=== PATIENT | female | born 1975 | race Caucasian/White ===

== ENCOUNTER 2019-09-24 17:25 | Emergency (ER) | payer OTHER ==
[2019-09-24 17:42] VITALS: BP 108/48; PULSE 80; TEMP 97.9; BMI 22.6
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
--- NOTE | 2019-09-25 09:27 | EKG ---
Test Reason : Blood Pressure : / mmHG Vent. Rate : 072 BPM Atrial Rate : 072 BPM P-R Int : 130 ms QRS Dur : 082 ms QT Int : 400 ms P-R-T Axes : 059 -05 029 degrees QTc Int : 438 ms NORMAL SINUS RHYTHM WITH SINUS ARRHYTHMIA POSSIBLE LEFT ATRIAL ENLARGEMENT SEPTAL INFARCT , AGE UNDETERMINED ABNORMAL ECG NO PREVIOUS ECGS AVAILABLE Confirmed by Guido Cunningham MD ([id number]) on 09/25/2019 9:26:35 AM Referred By: Confirmed By:Guido Cunningham MD
--- NOTE | 2019-09-27 14:27 | EKG ---
Test Reason : Blood Pressure : / mmHG Vent. Rate : 069 BPM Atrial Rate : 069 BPM P-R Int : 130 ms QRS Dur : 082 ms QT Int : 408 ms P-R-T Axes : 043 -13 018 degrees QTc Int : 437 ms NORMAL SINUS RHYTHM POSSIBLE LEFT ATRIAL ENLARGEMENT LEFT VENTRICULAR HYPERTROPHY CANNOT RULE OUT SEPTAL INFARCT (CITED ON OR BEFORE 24-SEP-2019) ABNORMAL ECG WHEN COMPARED WITH ECG OF 24-SEP-2019 17:48, NO SIGNIFICANT CHANGE WAS FOUND Confirmed by VIRAJ MENDOZA MD ([id number]) on 09/27/2019 2:27:11 PM Referred By: Confirmed By:VIRAJ MENDOZA MD
== END 2019-09-24 20:24 | disposition home or self-care (01) ==
LOC: JERFT 17:25
DX: S20.219A Contusion of unspecified front wall of thorax, initial encounter (principal); V49.59XA Passenger injured in collision with other motor vehicles in traffic accident, initial encounter; Y92.414 Local residential or business street as the place of occurrence of the external cause; Y93.89 Activity, other specified; Y99.8 Other external cause status
CPT/HCPCS: 71046-TC-FY; 93005; 93010; 99282-25